=== PATIENT | female | born 1995 | race Caucasian/White ===

== ENCOUNTER 2020-12-24 05:02 | Inpatient (IN) | payer OTHER ==
[2020-12-24 06:06] LABS: HCT 36.2 % (37.0-47.0); HGB 12.4 g/dl (12.5-16.0); MCH 31.2 pg (25.0-31.0); MCHC 34.3 g/dL (32.0-36.0); MCV 91.2 fL (78.0-100.0); MPV 10.7 fL (6.0-9.5); RBC 3.97 M/uL (4.20-5.40); RDW 12.5 % (11.5-14.0); WBC 11.2 K/uL (4.0-10.5)
[2020-12-24 12:20] LABS: BILIRUBIN NEGATIVE (NEGATIVE); BLOOD NEGATIVE Ery/uL (NEGATIVE); CLARITY CLEAR (CLEAR); COLOR YELLOW (YELLOW); GLUCOSE (U) NORMAL (NORMAL); LEUKOCYTES NEGATIVE Leu/uL (NEGATIVE); NITRITE NEGATIVE (NEGATIVE); PROTEIN NEGATIVE (NEGATIVE); SPECIFIC GRAVITY 1.015 (1.001-1.030); UROBILINOGEN 0.2 mg/dL (0.2-1.0); pH 6.5 (5.0-9.0)
[2020-12-24 12:57] LABS: URINARY WBC RARE
[2020-12-25 05:29] LABS: HCT 28.3 % (37.0-47.0); HGB 9.7 g/dl (12.5-16.0); MCH 31.4 pg (25.0-31.0); MCHC 34.3 g/dL (32.0-36.0); MCV 91.6 fL (78.0-100.0); MPV 10.6 fL (6.0-9.5); RBC 3.09 M/uL (4.20-5.40); RDW 12.5 % (11.5-14.0)
== END 2020-12-26 09:45 | disposition home or self-care (01) | DRG 787 ==
LOC: FOB 05:02
PROVIDERS: ADMIT Obstetrics & Gynecology
PROC: 10D00Z1 Extraction of Products of Conception, Low, Open Approach (ICD-10-PCS; principal; 2020-12-24 07:30)
DX: O32.1XX0 Maternal care for breech presentation, not applicable or unspecified (principal); D62 Acute posthemorrhagic anemia; O36.5930 Maternal care for other known or suspected poor fetal growth, third trimester, not applicable or unspecified; Z3A.38 38 weeks gestation of pregnancy; Z37.0 Single live birth; R63.6 Underweight; O90.81 Anemia of the puerperium; Z20.822 Contact with and (suspected) exposure to COVID-19
CPT/HCPCS: 36415; 81001; 86850; 86900; 86901; J0690; J1100; J1885; J2274; J2370; J2405; J2550; J2916; J3010; J7120; U0002